=== PATIENT | male | born 1960 | race Caucasian/White ===

== ENCOUNTER 2018-10-11 13:22 | Day surgery (SDC) | payer BC ==
[~2018-10-11] VITALS: Ht 236.2 cm; Wt 80.3 kg
[~2018-10-11 13:22] MED LIST: Cymbalta60 MG; DULO60 PO; LISI20 PO; THERAPEUTIC-M1 EAC1 PO; VITAMIN D35000 UNIT PO
== END 2018-10-11 15:56 | disposition home or self-care (01) ==
LOC: ORSCSDS 13:22
PROVIDERS: Internal Medicine Gastroenterology
PROC: 0DBM8ZX Excision of Descending Colon, Via Natural or Artificial Opening Endoscopic, Diagnostic (ICD-10-PCS; principal; 2018-10-11 14:30)
PROC: 0DBP8ZX Excision of Rectum, Via Natural or Artificial Opening Endoscopic, Diagnostic (ICD-10-PCS; principal; 2018-10-11 14:30)
DX: R10.9 Unspecified abdominal pain (principal); D12.4 Benign neoplasm of descending colon; K62.1 Rectal polyp; Z86.010 Personal history of colon polyps; K59.09 Other constipation; I10 Essential (primary) hypertension; F32.9 Major depressive disorder, single episode, unspecified; F17.210 Nicotine dependence, cigarettes, uncomplicated; Z79.899 Other long term (current) drug therapy
CPT/HCPCS: 88305; J7120